=== PATIENT | male | born 2000 | race Caucasian/White ===

== ENCOUNTER 2020-03-22 18:04 | Emergency (ER) | payer BC, OTHER ==
[~2020-03-22] VITALS: Ht 160 cm; Wt 83.0 kg
[2020-03-22] MEDS ORDERED: SERTRALINE HCL100 MG PO (18:12)
[2020-03-22] MEDS ORDERED: NEURONTIN 300M300 M2 PO (18:22)
[2020-03-22 19:00] LABS: ANION GAP 10 mmol/L (7-16); BUN 12 mg/dL (7-18); CALCIUM 9.1 mg/dL (8.5-10.1); CHLORIDE 103 mmol/L (98-107); CO2 27 mmol/L (21-32); CREATININE 0.9 mg/dL (0.7-1.3); GLUCOSE 84 mg/dL (74-106); POTASSIUM 4.1 mmol/L (3.5-5.1); SODIUM 140 mmol/L (136-145)
[2020-03-22 19:09] LABS: TROPONIN-I <0.06 ng/mL (<0.06)
[2020-03-22 20:09] VITALS: BP 103/66
--- NOTE | 2020-03-23 07:38 | EKG ---
[facility] [place] [address] ELECTROCARDIOGRAM REPORT Name: DOMINIQUERANDARAINER NEVILLE IV Room #: DEP [facility]#: [id number] Admission: 03/22/20 Attend Phys: Discharge: 03/22/20 Date of : 89 Report #: [id number] THIS REPORT FOR: cc: Jose Juan Josue MD, Travis J. MD Santiago, Patrick MD [facility] ~ THIS REPORT FOR: //name// [facility] ED Test Date: 2020-03-22 Test Time: 18:29:19 Pat Name: RAINER ODONNELL Department: Room: Gender: Loan Originator: Aleksandar : 2000 Requested By: Emiliano Ibanez Order Number: [id number] MD: Jonas Bocanegra Measurements Intervals [facility] Rate: 87 P: 46 TN: 133 QRS: 14 QRSD: 84 T: 53 QT: 338 QTc: 407 Interpretive Statements Sinus rhythm No previous ECG available for comparison Electronically Signed On 03-23-2020 7:38:44 CDT by Jonas Bocanegra [email or web address] <ELECTRONICALLY SIGNED> By: Jonas Bocanegra MD, FACC 03/23/20 0738 [id number] 28 Jonas Bocanegra MD, [facility] /EPI
== END 2020-03-22 20:09 | disposition home or self-care (01) ==
LOC: ER 18:04
PROVIDERS: Nurse Practitioner
DX: R00.2 Palpitations (principal); Z79.899 Other long term (current) drug therapy